=== PATIENT | male | born 1940 | race Hispanic/Latino ===

== ENCOUNTER 2018-05-19 17:00 | Observation (INO) | payer BC, MEDICARE ==
--- NOTE | 2018-05-19 17:27 | ED PDOC ---
Arrival/HPI - General Historian: Patient - History of Present Illness Narrative History of Present Illness (Text): 05/19/18 17:41 77 y/o M with PMHx of diverticulosis, osteoarthritis presents to ED after being [facility] for near-syncopal episode while pt was at [facility]. Pt reports that he had skipped lunch today and had not ate/drank since the morning. Pt had attended [facility] today around 4pm. Pt was standing for a prolonged period when he began feeling "dizzy" and nearly fell, when bystanders helped him lay down. Symptoms resolved upon laying down with legs elevated. He denies any associated prodrome, tongue biting, urinary incontinence, one-sided weakness, chest pain, palpitations, shortness of breath, hematemesis, n/v/c/d, dysuria, hematochezia. PMD: Dr. Martinez 05/19/18 18:47 Time/Duration: Prior to Arrival Symptom Onset: Sudden Symptom Course: Unchanged Context: Standing <Wanda He - Last Filed: 05/19/18 19:07> <Ancelmo Rodriguez - Last Filed: 05/20/18 12:27> - General Chief Complaint: Syncope Time Seen by Provider: 05/19/18 17:04 Past Medical History - Provider Review Nursing Documentation Reviewed: Yes - Cardiac Hx Cardiac Disorders: No - Pulmonary Hx Respiratory Disorders: No - Neurological Hx Neurological Disorder: No - HEENT Hx HEENT Disorder: No - Renal Hx Renal Disorder: No - Endocrine/Metabolic Hx Endocrine Disorders: No - Hematological/Oncological Hx Blood Disorders: No - Integumentary Hx Dermatological Disorder: Yes Other/Comment: 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 <Wanda He - Last Filed: 05/19/18 19:07> Family/Social History - Physician Review Nursing Documentation Reviewed: Yes Family/Social History: Unknown Family HX Smoking Status: Current Some Days Smoker Hx Alcohol Use: Yes Frequency of alcohol use: Socially Hx Substance Use: No <Wanda He - Last Filed: 05/19/18 19:07> Allergies/Home Meds <Wanda He - Last Filed: 05/19/18 19:07> <Ancelmo Rodriguez - Last Filed: 05/20/18 12:27> Allergies/Adverse Reactions: Allergies No Known Allergies Allergy (Verified 05/19/18 17:08) Home Medications: Home Meds Medication Instructions Recorded Confirmed RX: Unobtainable 05/19/18 05/19/18 Review of Systems - Review of Systems Constitutional: Normal Eyes: Normal ENT: Normal Respiratory: Normal Cardiovascular: Normal Gastrointestinal: Normal. absent: Diarrhea, Vomiting Genitourinary Male: Normal. absent: Dysuria Musculoskeletal: Normal Skin: Normal Neurological: Normal. absent: Headache, Dizziness, Focal Weakness, Speech Changes, Facial Droop, Seizure Endocrine: Normal Hemo/Lymphatic: Normal Psychiatric: Normal <Wanda He Last Filed: 05/19/18 19:07> Physical Exam Vital Signs Reviewed: Yes Vital Signs Temp Pulse Resp BP Pulse Ox 05/19/18 17:08 97.7 F 86 16 132/69 97 Temperature: Afebrile Blood Pressure: Normal Pulse: Regular Respiratory Rate: Normal Appearance: Positive for: Well-Appearing, Non-Toxic, Comfortable Pain Distress: None Mental Status: Positive for: Alert and Oriented X 3 - Systems Exam Head: Present: Atraumatic, Normocephalic Pupils: Present: PERRL Extroacular Muscles: Present: EOMI Conjunctiva: Present: Normal Mouth: Present: Moist Mucous Membranes Neck: Present: Normal Range of Motion Respiratory/Chest: Present: Clear to Auscultation, Good Air Exchange. No: Respiratory Distress, Accessory Muscle Use Cardiovascular: Present: Regular Rate and Rhythm, Normal S1, S2. No: Murmurs Abdomen: No: Tenderness, Distention, Peritoneal Signs Back: Present: Normal Inspection Upper Extremity: Present: Normal Inspection. No: Cyanosis, Edema Lower Extremity: Present: Normal Inspection. No: Edema Neurological: Present: GCS=15, CN II-XII Intact, Speech Normal, Motor Func Grossly Intact, Normal Sensory Function Skin: Present: Warm, Dry, Normal Color. No: Rashes Psychiatric: Present: Alert, Oriented x 3, Normal Insight, Normal Concentration <Wanda He Last Filed: 05/19/18 19:07> Vital Signs Temp Pulse Resp BP Pulse Ox 05/19/18 19:48 97.6 F 77 16 119/65 99 05/19/18 17:08 97.7 F 86 16 132/69 97 <Ancelmo Rodriguez - Last Filed: 05/20/18 12:27> Medical Decision Making ED Course and Treatment: 05/19/18 18:02 Impression: 77 y/o M with PMHx of diverticulosis, OA presents to ED with near- syncopal while standing at [facility] Differential diagnosis includes but is not limited to: Near-syncope Prior notes and results have been reviewed Plan: Labs EKG Chest xray Reassess & dispo Progress Notes: Pt re-evaluated, informed of CBC results. Pt & son at bedside report no known history of anemia. Case discussed with Dr. Suman Martinez. Accepted to his service, would like pt to be admitted to remote-telemetry. 05/19/18 18:59 - Lab Interpretations Lab Results: Lab Results 05/19/18 17:06: POC Glucose (mg/dL) 101 - EKG Interpretation EKG Interpretation (Text): 05/19/18 17:26 Normal sinus rhythm HR: 86bpm QTc: 449ms <Wanda He - Last Filed: 05/19/18 19:07> ED Course and Treatment: Seen and examined with resident. 77 y/o M p/w near syncope. On exam, heart regular rate. - Lab Interpretations Lab Results: 05/19/18 18:12 05/19/18 18:12 Lab Results 05/19/18 18:12: Sodium 139, Potassium 4.1, Chloride 104, Carbon Dioxide 26, Anion Gap 13, BUN 13, Creatinine 0.9, Est GFR ( Amer) > 60, Est GFR (Non- Af Amer) > 60, Random Glucose 100, Calcium 9.0, Total Bilirubin 0.5, AST 20, ALT 25, Alkaline Phosphatase 154 H, Total Creatine Kinase 40, Troponin I < 0.01, Total Protein 7.1, Albumin 4.1, Globulin 3.0, Albumin/Globulin Ratio 1.4 05/19/18 18:12: WBC 9.7, RBC 4.45, Hgb 9.8 L, Hct 32.9 L, MCV 73.9 L, MCH 22.0 L , MCHC 29.8 L, RDW 15.0 H, Plt Count 254, MPV 8.5, Gran % 80.3 H, Lymph % (Auto) 13.0 L, Douglas % (Auto) 5.1, Eos % (Auto) 1.4 L, Baso % (Auto) 0.2, Gran # 7.77 H, Lymph # (Auto) 1.3, Douglas # (Auto) 0.5, Eos # (Auto) 0.1, Baso # (Auto) 0.02 05/19/18 17:06: POC Glucose (mg/dL) 101 - RAD Interpretation Radiology Orders: 05/19/18 17:54 CHEST PORTABLE [RAD] Stat - Medication Orders Current Medication Orders: Discontinued Medications Influenza Virus Vaccine (Flucelvax Quad [id number] Syr) 60 mcg IM .ONCE ONE Stop: 05/20/18 00:10 Pneumococcal Polyvalent Vaccine (Pneumovax 23 Vaccine) 0.5 ml IM .ONCE ONE Stop: 05/20/18 00:10 <Ancelmo Rodriguez - Last Filed: 05/20/18 12:27> - PA / [employer] OPERATOR / Resident Statement RAQUEL has reviewed & agrees with the documentation as recorded. RAQUEL has examined the patient and agrees with the treatment plan. <Wanda He - Last Filed: 05/19/18 19:07> Disposition/Present on Arrival - Present on Arrival Any Indicators Present on Arrival: No History of DVT/PE: No History of Uncontrolled Diabetes: No Urinary Catheter: No History of Decub. Ulcer: No History Surgical Site Infection Following: None - Disposition Have Diagnosis and Disposition been Completed?: Yes Disposition Time: 19:07 Patient Plan: Admission <Wanda He - Last Filed: 05/19/18 19:07> <Ancelmo Rodriguez - Last Filed: 05/20/18 12:27> - Disposition Diagnosis: Near syncope Disposition: HOSPITALIZED Patient Problems: Current Active Problems Problem Status Onset Near syncope Acute Condition: FAIR
[2018-05-19 18:37] LABS: BASO # 0.02 K/mm3 (0.0-2.0); BASO % 0.2 % (0.0-3.0); EOS # 0.1 (0.0-0.7); EOS % 1.4 % (1.5-5.0); GRAN # 7.77 (1.4-6.5); GRAN % 80.3 % (50.0-68.0); HEMOGLOBIN 9.8 g/dL (14.0-18.0); LYMPH # 1.3 (1.2-3.4); MEAN CELL VOLUME 73.9 fl (80.0-105.0); MEAN CORPUSCULAR HGB CONC 29.8 g/dl (31.0-37.0); MEAN PLATELET VOLUME 8.5 fl (7.0-11.0); MONO # 0.5 (0.1-0.6); MONO % 5.1 % (1.0-6.0); RBC 4.45 10^6/uL (3.5-6.1); WHITE BLOOD COUNT 9.7 10^3/uL (4.5-11.0)
[2018-05-19 18:45] LABS: ALB/GLOB RATIO 1.4 (1.1-1.8); ALBUMIN 4.1 g/dL (3.0-4.8); ALT/SGPT 25 U/L (7-56); AST/SGOT 20 U/L (17-59); BLOOD UREA NITROGEN 13 mg/dL (7-21); GFR NON-AFRICAN AMERICAN > 60
[2018-05-19 18:57] LABS: TROPONIN I < 0.01 ng/mL
[2018-05-20] MEDS ORDERED: Pneumococcal 23-Valent Vaccine IM ONE (00:09)
[2018-05-20] MEDS ORDERED: Influenza Vaccine 60 mcg/0.5 mL SYR (4YR UP) IM ONE (00:09)
[2018-05-20 07:02] LABS: BASO # 0.03 K/mm3 (0.0-2.0); BASO % 0.4 % (0.0-3.0); EOS # 0.3 (0.0-0.7); EOS % 3.9 % (1.5-5.0); GRAN # 4.53 (1.4-6.5); GRAN % 63.1 % (50.0-68.0); HEMOGLOBIN 9.5 g/dL (14.0-18.0); LYMPH # 1.8 (1.2-3.4); LYMPH % 25.6 % (22.0-35.0); MEAN CORPUSCULAR HEMOGLOBIN 21.5 pg (25.0-35.0); MEAN CORPUSCULAR HGB CONC 29.1 g/dl (31.0-37.0); MEAN PLATELET VOLUME 8.4 fl (7.0-11.0); MONO # 0.5 (0.1-0.6); RBC 4.42 10^6/uL (3.5-6.1); RED CELL DISTRIBUTION WIDTH 15.2 % (11.5-14.5); WHITE BLOOD COUNT 7.2 10^3/uL (4.5-11.0)
[2018-05-20 07:37] VITALS: BP 133/74; RESP 19; TEMP 98.3; O2SAT 96
[2018-05-20 07:38] LABS: ALB/GLOB RATIO 1.4 (1.1-1.8); ALBUMIN 3.9 g/dL (3.0-4.8); ALT/SGPT 24 U/L (7-56); AST/SGOT 27 U/L (17-59); BLOOD UREA NITROGEN 12 mg/dL (7-21); CALCIUM 9.1 mg/dL (8.4-10.5); GFR NON-AFRICAN AMERICAN > 60
[2018-05-20 07:42] LABS: FREE T4 1.16 ng/dL (0.78-2.19)
--- NOTE | 2018-05-20 09:33 | CARD ---
APPROVED REPORT Date of service: 05/20/2018 EKG Measurement Heart [id number] [place] [id number] <Conclusion> Normal sinus rhythm Normal ECG
--- NOTE | 2018-05-20 09:41 | CARD ---
APPROVED REPORT Date of service: 05/19/2018 EKG Measurement Heart [id number] [place] [id number] <Conclusion> Poor data quality, interpretation may be adversely affected Normal sinus rhythm Normal ECG
--- NOTE | 2018-05-20 10:09 | RAD ---
Date of service: 05/19/2018 HISTORY: near-syncope COMPARISON: No prior. FINDINGS: LUNGS: No active pulmonary disease. PLEURA: No significant pleural effusion identified, no pneumothorax apparent. CARDIOVASCULAR: Aortic calcification Normal cardiac size. No pulmonary vascular congestion. OSSEOUS STRUCTURES: No significant abnormalities. VISUALIZED UPPER ABDOMEN: Normal. OTHER FINDINGS: None. IMPRESSION: No active disease.
[2018-05-20 11:29] VITALS: PULSE 76
== END 2018-05-20 13:07 | disposition home or self-care (01) ==
LOC: ED 17:00 → ERH 18:59 → 3RNO 20:30
PROVIDERS: ADMIT Internal Medicine; ATTEND Internal Medicine
DX: R55 Syncope and collapse (principal); K57.90 Diverticulosis of intestine, part unspecified, without perforation or abscess without bleeding; M19.90 Unspecified osteoarthritis, unspecified site
CPT/HCPCS: 36415; 71045; 80053; 82550; 82948; 83735; 84100; 84439; 84443; 84484; 85025; 93005; 99285; G0378